=== PATIENT | female | born 1985 | race Caucasian/White ===

== ENCOUNTER 2020-10-28 19:56 | Emergency (ER) | payer MEDICARE, SELFPAY ==
--- NOTE | ~2020-10-28 | CT_ITS ---
EXAMINATION: CT abdomen pelvis w con DATE: 10/28/2020 21:50 INDICATION: Abdominal pain TECHNIQUE: Computed tomography (CT) of the abdomen and pelvis was performed with 100 mL Omnipaque-350 intravenous contrast. Automated exposure control and iterative reconstruction technique were employe d. The dose-length product was 750.65 mGy-cm. COMPARISON: None FINDINGS: Respiratory motion and mild scattered atelectasis in both lungs. No pneumonia, pulmonary edema, pleur al effusion or pneumothorax. Mild cardiomegaly. No pericardial effusion. Thoracic aorta is normal in caliber with no dissection. No pathologically enlarged thoracic lymphadenopathy. There are multiple indeterminate small hepatic lesions which are of lower attenuation in the surrounding liver, many wit h irregular margins in the largest measuring up to 1.4 cm. Spleen, pancreas, bilateral adrenal glands and kidneys are normal. Bladder, anteverted uterus and bilateral adnexa are normal. Moderate amount of stool scattered throughout the colon particularly in the sigmoid colon which could be seen with co nstipation. No dilated bowel to suggest obstruction. Normal appendix. No free intraperitoneal gas or fluid. No pathologically enlarged abdominal or pelvic lymphadenopathy.. Scattered bone islands in the pelvis and proximal femurs. No suspicious lytic or blastic bone lesions. 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 IMPRESSION: 1. Multiple indeterminate small hepatic lesions raising concern for metastatic disease although patie nt is relatively young no evident primary malignancy is identified. Consider further evaluation with pre and postcontrast MRI. 2. Mild cardiomegaly. Reviewed, dictated and finalized at location A. IMPRESSION: 1. Multiple indeterminate small hepatic lesions raising concern for metastatic disease although patient is relatively young no evident primary malignancy is i dentified. Consider further evaluation with pre and postcontrast MRI. 2. Mild cardiomegaly.
--- NOTE | ~2020-10-28 | XR_ITS ---
EXAMINATION: XR chest 1V portable DATE: 10/28/2020 23:07 INDICATION: Right lower chest pain. TECHNIQUE: frontal view of the chest was obtained. COMPARISON: CT dated 10/28/2020 FINDINGS: The lungs are clear with no focal airspace opacities, pulmonary edema, pleural effusion or pneumothor ax. Cardiomegaly with prominent bulge along the left heart border which on prior CT corresponds to a dilated left atrial appendage. Visualized bones and soft tissues are unremarkable. IMPRESSION: 1. Cardiomegaly with central dilated left atrial appendage. 2. No acute cardiopulmonary disease. Reviewed, dictated and finalized at location A.
[2020-10-28 19:59] VITALS: BP 153/85; PULSE 93; RESP 18; TEMP 36.3; O2SAT 100
[2020-10-28 20:12] LABS: Basophils Absolute Auto 0.1 K/mm3 (0.0-0.1); Basophils Percent Auto 0.4 % (0.2-1.2); Eosinophils Absolute Auto 0.2 K/mm3 (0-0.3); Eosinophils Percent Auto 1.3 % (0-4.4); Hematocrit 40.6 % (37.0-47.0); Hemoglobin 12.9 g/dL (12.0-15.0); Immature Granulocyte Absolute 0.04 K/mm3 (0.00-0.031); Immature Granulocyte Percent A 0.3 % (0-0.5); Lymphocytes Absolute Auto 3.26 K/mm3 (0.9-3.2); Lymphocytes Percent Auto 23.9 % (18.3-44.2); Mean Corpuscular HGB Conc 31.8 g/dl (32-36); Mean Corpuscular Volume 88.1 fl (80-100); Mean Platelet Volume 10.2 fl (7.4-10.4); Monocytes Absolute Auto 1.4 K/mm3 (0.1-0.6); Monocytes Percent Auto 10.4 % (2.6-8.5); Neutrophils Absolute Auto 8.7 K/mm3 (1.3-6.7); Neutrophils Percent Auto 63.7 % (45.5-73.1); Platelet Count Result 362 k/mm3 (150-375); Red Blood Count 4.61 M/mm3 (4.2-5.4); Red Cell Distribution Width 14.8 % (11.5-14.5); White Blood Count 13.6 K/mm3 (4.5-10.0)
[2020-10-28 20:23] LABS: Alanine Aminotransferase 37 U/L (4-35); Albumin Level 4.7 g/dL (3.5-5.1); Alkaline Phosphatase 122 U/L (38-126); Anion Gap 10 mmol/L (8-16); Aspartate Amino Transferase 36 U/L (14-36); Bilirubin,Total 0.3 mg/dL (0.2-1.3); Blood Urea Nitrogen 19 mg/dL (7-17); Calcium 9.6 mg/dL (8.4-10.2); Carbon Dioxide 22 mmol/L (22-30); Chloride 106 mmol/L (98-107); Estimated CRCL calculation 146 ml/min; Estimated Glomerular Filt Rate > 60; Glucose 103 mg/dL (65-105); Lipase 99 U/L (23-300); Potassium 3.8 mmol/L (3.4-5.0); Sodium 138 mmol/L (137-145)
[2020-10-28 21:07] VITALS: BP 142/65; PULSE 85; RESP 16; O2SAT 98
[2020-10-28 21:14] LABS: Add Urine Microscopic? YES; Appearance Urine Clear (Clear); Bacteria Urine Trace /hpf; Bilirubin Urine Negative (Negative); Blood Urine Negative (Negative); Color Urine Yellow (Yellow); Glucose Urine UA Negative (Negative); Ketones Urine Trace mg/dL (Negative); Leukocyte Esterase Ur Negative LEU/UL (Negative); Mucus Urine Rare /lpf; Nitrate Urine Negative (Negative); Protein Urine Negative (Negative); RBC Urine 0-2 /hpf (0-2); Specific Grav Ur 1.028 (1.001-1.035); Squamous Epithelial Cell Urine Moderate /hpf (Few); WBC Urine 0-3 /hpf
[2020-10-28] MEDS: KETOROLAC 30 MG/ML VIAL (*BKC) IV PUSH (21:15)
[2020-10-28] MEDS: diphenhydrAMINE HCl INJ 50 MG/ML VIAL 25 MG IV PUSH (21:52)
[2020-10-28] MEDS: methylPREDNISolone SOD SUCC 125 MG VIAL IV PUSH (21:52)
[2020-10-28] MEDS: FAMOTIDINE 20 MG/2 ML VIAL IV PUSH (21:52)
[2020-10-28 21:59] VITALS: BP 161/90; PULSE 89; RESP 14; O2SAT 99
--- NOTE | 2020-10-28 22:52 | ECG_ITS ---
Measurements Intervals [place] Rate: 79 P: 181 UT: 167 QRS: 191 QRSD: 92 T: 197 QT: 335 QTc: 386 Interpretive Statements SINUS RHYTHM ARM LEADS REVERSED BORDERLINE T WAVE ABNORMALITY- ANTEROLAT/INF LEADS BASELINE ARTIFACT- I, II, III, AVR, AVL, AVF BORDERLINE ECG Electronically Signed On 10-29-2020 6:41:35 CDT by Art Gilliland D.O.
--- NOTE | 2020-10-28 23:04 | ED.GENADULT ---
HPI - General Adult General Chief complaint: Abdominal Pain Stated complaint: Abd Pain Time Seen by Provider: 10/28/20 20:40 Source: RN notes reviewed History of Present Illness HPI narrative: Patient presents to emergency department from home for abdominal pain. History is per the patient's family is present as well as the patient patient with mental disability and unable to fully communicate patient with pain located in the right side of the abdomen per the family has been point of the right side the abdomen today per the family patient is had no nausea vomiting or diarrhea denies any fevers or chills states the patient's last bowel movement was last night they discussed with Dr. Butterfield who recommended patient come for further evaluation Related Data Home Medications Medication Instructions Recorded Confirmed melatonin 5 mg capsule mg PO 03/10/19 06/15/20 Allergies Allergy/AdvReac Type Severity Reaction Status Date / Time iohexol Allergy Rash Verified 10/28/20 21:46 [From contrast - CT, X-RAY] Review of Systems Review of Systems: Narrative: Gen.: Denies fevers or chills Eyes: Denies eye pain or visual change ENT: Denies congestion Respiratory: Denies shortness of breath or cough CV: Denies chest pain or palpitations GI: See HPI Musculoskeletal: Denies back pain or muscle pain Neuro: Denies numbness, tingling, weakness or focal weakness Skin: Denies rash Except as documented, all other systems reviewed and negative [facility] Past Medical History Medical History (Updated 10/28/20 @ 23:40 by Deshawn Johnson DO) Blood glucose elevated BP (high blood pressure) Incontinence Intellectual disability OCD (obsessive compulsive disorder) Pemphigus vulgaris Psychosis Family History Family History Father Hypertension Mother Hypertension Social History Social History Social History: single Smoking status: Never smoker Second hand tobacco smoke exposure: No Alcohol intake: never Substance use: never Substance use type: does not use Additional occupation/education comments: stays home Gender identity (if verbalized by the patient): Female Exam Narrative: Exam Narrative: APPEARANCE: No acute distress, nontoxic, resting in bed HEENT: Normocephalic, atraumatic, OMM RESPIRATORY: No respiratory distress, clear to auscultation bilaterally with no rhonchi wheezing or rales CARDIOVASCULAR: RRR s murmur ABDOMINAL: Soft nondistended tender palpation right upper quadrant lower quadrant no tenderness letter quadrant left lower quadrant rebound or guarding MUSCULOSKELETAl: Moves all extremities. No clubbing, cyanosis or edema. NEURO: Awake and alert. Following commands, speech normal, no focal deficits SKIN:: Warm, dry. Normal Color PSYCHIATRIC: Normal affect/mood Course Course Emergency Course: Called discussed with Dr. Butterfield presentation work-up we discussed the CT scan she states she will follow-up with the patient is an outpatient set up MRI. Agrees with plan for discharge with magnesium citrate Patient states that they are feeling much better at this time. States abdominal pain has resolved. Repeat abdominal exam shows the patient's abdomen to be soft and nontender. Discussed with patient results of workup and diagnosis. Discussed need for follow-up with primary care physician, reasons to return to the emergency department in proper use of medication. Patient understands and agrees to current treatment plan. Discussed with patient's parents CT results need for follow-up with Dr. Butterfield for likely MRI. We did discuss the allergic reaction need for patient to states that she is allergic to IV contrast moving forward Vital Signs Vital signs: Vital Signs Temperature 97.3 F L 10/28/20 19:59 Pulse Rate 93 10/28/20 19:59 Respiratory Rate 18 10/28/20 19:59 Blood Pressure 153/85 H 0
[2020-10-28 23:15] VITALS: BP 167/92; PULSE 83; RESP 16; O2SAT 99
[2020-10-29 00:09] VITALS: BP 150/77; PULSE 80; RESP 14; O2SAT 99
== END 2020-10-29 | disposition home or self-care (01) ==
PROVIDERS: Emergency Provider Emergency Medicine; PCP Family Medicine
DX: K59.00 Constipation, unspecified (principal); R10.9 Unspecified abdominal pain; T50.8X5A Adverse effect of diagnostic agents, initial encounter
CPT/HCPCS: 36415; 71045; 74177; 80053; 81001; 81025; 83690; 85025; 93005; 96365; 96375; 99284; J0131; J1200; J1885; J2930; Q9967

== ENCOUNTER 2021-01-05 08:35 | Outpatient (CLI) | payer MEDICARE, SELFPAY ==
[2021-01-05 09:06] LABS: Basophils Absolute Auto 0.1 K/mm3 (0.0-0.1); Basophils Percent Auto 0.7 % (0.2-1.2); Eosinophils Absolute Auto 0.1 K/mm3 (0-0.3); Eosinophils Percent Auto 0.9 % (0-4.4); Hemoglobin 12.9 g/dL (12.0-15.0); Immature Granulocyte Absolute 0.03 K/mm3 (0.00-0.031); Immature Granulocyte Percent A 0.3 % (0-0.5); Lymphocytes Absolute Auto 2.63 K/mm3 (0.9-3.2); Lymphocytes Percent Auto 24.2 % (18.3-44.2); Mean Corpuscular HGB Conc 32.3 g/dl (32-36); Mean Corpuscular Hemoglobin 28.5 pg (26-34); Mean Corpuscular Volume 88.5 fl (80-100); Mean Platelet Volume 10.4 fl (7.4-10.4); Monocytes Absolute Auto 1.1 K/mm3 (0.1-0.6); Monocytes Percent Auto 9.9 % (2.6-8.5); Platelet Count Result 355 k/mm3 (150-375); Red Blood Count 4.52 M/mm3 (4.2-5.4); White Blood Count 10.9 K/mm3 (4.5-10.0)
[2021-01-05 09:18] LABS: Alanine Aminotransferase 33 U/L (4-35); Albumin Level 4.6 g/dL (3.5-5.1); Alkaline Phosphatase 82 U/L (38-126); Anion Gap 8 mmol/L (8-16); Aspartate Amino Transferase 25 U/L (14-36); Bilirubin,Total 0.6 mg/dL (0.2-1.3); Blood Urea Nitrogen 12 mg/dL (7-17); Calcium 9.4 mg/dL (8.4-10.2); Carbon Dioxide 28 mmol/L (22-30); Chloride 103 mmol/L (98-107); Cholesterol 165 mg/dL (0-200); Estimated Glomerular Filt Rate > 60; Glucose 110 mg/dL (65-110); HDL Direct 43 mg/dL; Sodium 139 mmol/L (137-145); Triglycerides 98 mg/dL (<150)
[2021-01-05 09:22] LABS: Hemoglobin A1C 5.8 % (<5.7)
[2021-01-05 09:29] LABS: LDL Cholesterol Direct 87 mg/dL
== END 2021-01-05 08:36 | disposition home or self-care (01) ==
PROVIDERS: PCP Family Medicine; Visit Provider Family Medicine
DX: E78.5 Hyperlipidemia, unspecified (principal); I10 Essential (primary) hypertension; R73.09 Other abnormal glucose; F45.9 Somatoform disorder, unspecified; F29 Unspecified psychosis not due to a substance or known physiological condition
CPT/HCPCS: 36415; 80053; 80061; 83036; 84443; 85025

== ENCOUNTER 2021-08-09 10:33 | Outpatient (CLI) | payer MEDICARE, SELFPAY ==
[2021-08-09 11:20] LABS: Alanine Aminotransferase 26 U/L (4-35); Albumin Level 4.5 g/dL (3.5-5.1); Alkaline Phosphatase 79 U/L (38-126); Anion Gap 8 mmol/L (8-16); Aspartate Amino Transferase 32 U/L (14-36); Bilirubin,Total 0.4 mg/dL (0.2-1.3); Blood Urea Nitrogen 13 mg/dL (7-17); Calcium 8.8 mg/dL (8.4-10.2); Carbon Dioxide 27 mmol/L (22-30); Chloride 104 mmol/L (98-107); Estimated Glomerular Filt Rate > 60; Glucose 99 mg/dL (65-110); Potassium 3.9 mmol/L (3.4-5.0); Sodium 139 mmol/L (137-145)
== END 2021-08-09 10:34 | disposition home or self-care (01) ==
LOC: ANHLAB 10:35
PROVIDERS: PCP Family Medicine; Visit Provider Nurse Practitioner Gerontology
DX: K76.9 Liver disease, unspecified (principal)
CPT/HCPCS: 36415; 80053

== ENCOUNTER 2022-07-04 07:38 | Outpatient (CLI) | payer MEDICARE, SELFPAY ==
[2022-07-04 08:04] LABS: Basophils Absolute Auto 0.1 K/mm3 (0.0-0.1); Basophils Percent Auto 0.9 % (0.2-1.2); Eosinophils Absolute Auto 0.2 K/mm3 (0-0.3); Eosinophils Percent Auto 1.4 % (0-4.4); Hematocrit 38.2 % (37.0-47.0); Immature Granulocyte Absolute 0.04 K/mm3 (0.00-0.031); Immature Granulocyte Percent A 0.4 % (0-0.5); Lymphocytes Absolute Auto 2.69 K/mm3 (0.9-3.2); Lymphocytes Percent Auto 25.1 % (18.3-44.2); Mean Corpuscular HGB Conc 31.4 g/dl (32-36); Mean Corpuscular Hemoglobin 27.6 pg (26-34); Mean Corpuscular Volume 87.8 fl (80-100); Mean Platelet Volume 10.6 fl (7.4-10.4); Monocytes Absolute Auto 1.2 K/mm3 (0.1-0.6); Neutrophils Absolute Auto 6.5 K/mm3 (1.3-6.7); Neutrophils Percent Auto 61.2 % (45.5-73.1); Platelet Count Result 363 k/mm3 (150-375); Red Blood Count 4.35 M/mm3 (4.2-5.4); Red Cell Distribution Width 15.5 % (11.5-14.5); White Blood Count 10.7 K/mm3 (4.5-10.0)
[2022-07-04 08:19] LABS: Alanine Aminotransferase 27 U/L (6-35); Albumin Level 4.2 g/dL (3.5-5.1); Alkaline Phosphatase 78 U/L (38-126); Anion Gap 6 mmol/L (8-16); Aspartate Amino Transferase 31 U/L (14-36); Bilirubin,Total 0.5 mg/dL (0.2-1.3); Blood Urea Nitrogen 12 mg/dL (7-17); Calcium 8.5 mg/dL (8.4-10.2); Carbon Dioxide 28 mmol/L (22-30); Chloride 107 mmol/L (98-107); Cholesterol 143 mg/dL (0-200); Estimated Glomerular Filt Rate > 60; Glucose 104 mg/dL (65-110); HDL Direct 43 mg/dL; Potassium 3.8 mmol/L (3.4-5.0); Sodium 141 mmol/L (137-145); Triglycerides 69 mg/dL (<150)
[2022-07-04 08:30] LABS: LDL Cholesterol Direct 79 mg/dL
[2022-07-04 08:37] LABS: Hemoglobin A1C 5.9 % (<5.7)
== END 2022-07-04 07:39 | disposition home or self-care (01) ==
PROVIDERS: PCP Family Medicine; Visit Provider Family Medicine
DX: I10 Essential (primary) hypertension (principal); R73.9 Hyperglycemia, unspecified; E78.2 Mixed hyperlipidemia; K59.00 Constipation, unspecified; F42.9 Obsessive-compulsive disorder, unspecified
CPT/HCPCS: 36415; 80053; 80061; 83036; 84443; 85025

== ENCOUNTER 2024-09-23 08:56 | Outpatient (CLI) | payer MEDICARE, SELFPAY ==
--- OUTSIDE RECORDS SUMMARY | 2024-09-23 09:18 | XMS_ITS | CONTINUITY OF CARE DOCUMENT ---
Author Name dean moran Address Unknown Organization [facility] Address [address] [place] [address] Phone [phone] Care Team Providers Care Patient Observation Assistant Name Role Phone Bernadette PRESTON, Justin Unavailable [phone] CECILIA ESTRADA MD Unavailable CECILIA ESTRADA MD Unavailable [phone] PROBLEMS Condition Status Date Provider Notes History of ASD as infant active Anshul gonsalez Chest pain active Anshul Fernandes Pemphigus vulgaris active Anshul Diego g Obesity active Anshul Fernandes ENCOUNTERS Date Type Provider Location Encounter Diag nosis - In-person encounter Office Visit Justin Fleming MD [facility] Pemphigus vulgarisObesity VITAL SIGNS Date Observation Value Provider Body Mass Index (Ratio) 31.58 kg/m2 Ruben Fernandes blood pressure, diastolic 72 mm[Hg] Sri Jackson blood pressure, systolic 120 mm[Hg] Iraida Jackson oxygen saturation, oximetry 98 % Shey Jackson respiratory rate E&M 18 /min Veena Jackson pulse rate 73 /min Shey pierce weight E&M 184 [lb_av] Shey pierce height E&M 64 [in_i] Shey pierce ALLERGIES No Known Drug Allergies RESULTS Date Observation Value Provider Reference Range Interpretation Location 1 LDL cholesterol, serum 88 mg/dL Anshul Fernandes HISTORY OF MEDICATION USE Medication Status Instructions Dates Provider Indications Com ments ATENOLOL ORAL TABLET (ATENOLOL) active ONE TAB. DAILY Shey Jackson PREDNISONE ORAL TABLET (PREDNISONE) active 1 tab once daily Shey Jackson SOCIAL HISTORY Date Observation Value Provider social history reviewed E&M revi ewed - no changes required Anshul Fernandes social history E&M Smoking Histo ry: P atient has never smoked. Anshul Fernandes smoking status Never smoker Shey Carlos Manuel kulkarni FAMILY HISTORY Family Member Condition Full Brother Family History of Hy pertension: Father Family History of Hy pertension: Mother Family History of Hy pertension: INSURANCE PROVIDERS Payer name Policy type / Coverage type [email or web address] party ID [employer] US MEDICARE Commercial insurance company [id number] DIRECTIVES Name Date DISCUSSED - NO DECISION MADE TREATMENT PLAN Date Name Performer Cardiology:Normal ec ho. No recurrence. No need for stress test at this time. Anshul Fernandes Cardiology:Discussed diet. Currently on oral steroids. Encouraged weight loss and exercise. Anshul Fernandes Cardiology:Per PCP. Being treated with Prednisone at this time. Anshul Fernandes Cardiology:Closed in infancy without intervention. No ASD seen on echo. Anshul Fernandes Date Name Complete Echo
[2024-09-23 09:38] LABS: Basophils Absolute Auto 0.1 K/mm3 (0.0-0.1); Basophils Percent Auto 0.8 % (0.2-1.2); Eosinophils Absolute Auto 0.2 K/mm3 (0-0.3); Eosinophils Percent Auto 1.4 % (0-4.4); Hematocrit 38.6 % (37.0-47.0); Hemoglobin 12.2 g/dL (12.0-15.0); Immature Granulocyte Absolute 0.03 K/mm3 (0.00-0.031); Immature Granulocyte Percent A 0.3 % (0-0.5); Lymphocytes Absolute Auto 2.91 K/mm3 (0.9-3.2); Lymphocytes Percent Auto 26.6 % (18.3-44.2); Mean Corpuscular HGB Conc 31.6 g/dl (32-36); Mean Corpuscular Hemoglobin 27.4 pg (26-34); Mean Corpuscular Volume 86.7 fl (80-100); Mean Platelet Volume 10.7 fl (7.4-10.4); Monocytes Absolute Auto 0.8 K/mm3 (0.1-0.6); Monocytes Percent Auto 7.5 % (2.6-8.5); Neutrophils Absolute Auto 6.9 K/mm3 (1.3-6.7); Neutrophils Percent Auto 63.4 % (45.5-73.1); Platelet Count Result 410 k/mm3 (150-375); Red Blood Count 4.45 M/mm3 (4.2-5.4); Red Cell Distribution Width 15.6 % (11.5-14.5); White Blood Count 10.9 K/mm3 (4.5-10.0)
[2024-09-23 09:52] LABS: Alanine Aminotransferase 20 U/L (6-35); Albumin Level 4.4 g/dL (3.5-5.1); Alkaline Phosphatase 76 U/L (38-126); Anion Gap 9 mmol/L (4-12); Aspartate Amino Transferase 24 U/L (14-36); Bilirubin,Total 0.6 mg/dL (0.2-1.3); Blood Urea Nitrogen 14 mg/dL (7-17); Calcium 9.4 mg/dL (8.4-10.2); Carbon Dioxide 25 mmol/L (22-30); Chloride 104 mmol/L (98-107); Cholesterol 181 mg/dL (0-200); Estimated Glomerular Filt Rate > 60; Glucose 104 mg/dL (65-110); HDL Direct 48 mg/dL; Potassium 4.1 mmol/L (3.4-5.0); Sodium 138 mmol/L (137-145); Total Protein 7.6 g/dL (6.3-8.2); Triglycerides 112 mg/dL (<150)
[2024-09-23 10:11] LABS: LDL Cholesterol Direct 95 mg/dL
== END 2024-09-23 08:57 | disposition home or self-care (01) ==
LOC: ANHLAB 08:57
PROVIDERS: PCP Family Medicine; Visit Provider Student in an Organized Health Care Education/Training Program
DX: R73.09 Other abnormal glucose (principal); I10 Essential (primary) hypertension; Z83.438 Family history of other disorder of lipoprotein metabolism and other lipidemia
CPT/HCPCS: 36415; 80053; 80061; 83036; 85025